=== PATIENT | male | born 1980 | race Caucasian/White ===

== ENCOUNTER 2020-12-08 01:25 | Emergency (ER) | payer SELFPAY ==
[~2020-12-08] VITALS: Ht 177.8 cm; Wt 74.8 kg
[2020-12-08 02:22] VITALS: BP 118/68
== END 2020-12-08 04:30 | disposition home or self-care (01) ==
LOC: ER 01:28
DX: S61.210A Laceration without foreign body of right index finger without damage to nail, initial encounter (principal); W26.0XXA Contact with knife, initial encounter; Y93.89 Activity, other specified; Y92.89 Other specified places as the place of occurrence of the external cause; Y99.8 Other external cause status

== ENCOUNTER 2023-02-07 07:59 | Inpatient (IN) | payer MEDICAID ==
[~2023-02-07] VITALS: Ht 177.8 cm; Wt 73.9 kg
--- NOTE | 2023-02-07 08:03 | NUR ---
BIB , PT STATING THAT HE STARTED TO SHAKE UNCONTROLLABLY AND THOUGHT HE WAS HAVING A SEIZURE. PT ATTACHED TO MONITOR, HEART RATE IS ELEVATED. PT DENIES TAKING ANY DRUG OR DRINKING RECENTLY. DR SULLIVAN AT BEDSIDE. AWAITING MD ORDERS.
--- NOTE | 2023-02-07 08:08 | NUR ---
IV ESTABLISHED R 20G. LABS COLLECTED AND SENT.
[2023-02-07] MEDS ORDERED: LORAZEPAM INJ 2 MG/ML VIAL ONE (08:11)
--- NOTE | 2023-02-07 08:15 | NUR ---
URINE COLLECTED AND SENT
[2023-02-07] MEDS ORDERED: IV NS 0.9% 1,000 ML BAG IV ONE (08:30)
[2023-02-07] MEDS ORDERED: LORAZEPAM INJ 2 MG/ML VIAL IV ONE ×2 (08:30→15:00)
[2023-02-07 08:48] LABS: ALCOHOL, BLOOD < 3 mg/dL (0-0)
[2023-02-07 08:50] LABS: BASOPHILS # (AUTO) 0.1 K/uL (0.0-0.2); BASOPHILS % (AUTO) 0.5 % (0.0-2.0); EOSINOPHILS % (AUTO) 0.3 % (0.0-6.0); HEMATOCRIT 48 % (39-51); HEMOGLOBIN 15.7 g/dL (13.5-17.5); LYMPHOCYTES # (AUTO) 2.2 K/uL (0.8-4.8); LYMPHOCYTES % (AUTO) 17.9 % (20.0-44.0); MEAN CORPUSCULAR HGB CONC 33 g/dl (31.0-36.0); MEAN CORPUSCULAR VOLUME 102 fL (80-96); MONOCYTES # (AUTO) 1.3 K/uL (0.1-1.30); MONOCYTES % (AUTO) 10.8 % (2.0-12.0); NEUTROPHILS # (AUTO) 8.5 K/uL (1.8-8.9); NEUTROPHILS % (AUTO) 70.5 % (43.0-81.0); PLATELET COUNT (AUTO) 187 K/uL (150-450); RED BLOOD CELL COUNT(AUTO) 4.65 MIL/uL (4.5-6.0); WHITE BLOOD COUNT (AUTO) 12.1 K/uL (4.3-11.0)
[2023-02-07 08:56] LABS: ALANINE AMINOTRANSFERASE 179 U/L (12-78); ALBUMIN 4.9 g/dL (3.4-5.0); ALKALINE PHOSPHATASE 191 U/L (46-116); ASPARTATE AMINOTRANSFERASE 304 U/L (15-37); BILIRUBIN,DIRECT 0.9 mg/dL (0.0-0.2); BILIRUBIN,TOTAL 2.3 mg/dL (0.2-1.0); CALCIUM, SERUM 9.4 mg/dL (8.5-10.1); CARBON DIOXIDE 19 mmol/L (21-32); CHLORIDE 93 mmol/L (98-107); CREATININE 1.1 mg/dL (0.6-1.3); GLUCOSE 186 mg/dL (74-106); POTASSIUM 3.4 mmol/L (3.5-5.1); SODIUM SERUM 133 mmol/L (136-145); TOTAL PROTEIN, SERUM 8.9 g/dL (6.4-8.2); UREA NITROGEN, BLOOD 8 mg/dL (7-18)
[2023-02-07 09:00] LABS: THYROID STIMULATING HORMONE 4.921 uIU/mL (0.358-3.74)
--- NOTE | 2023-02-07 13:00 | NUR ---
room 118-1
--- NOTE | 2023-02-07 13:08 | NUR ---
REPORT GIVEN TO ANGELINA FOR MASOOD
--- NOTE | 2023-02-07 14:22 | NUR ---
PT TRASNFERRED TO TELE FOLLOW WITH ACLS PROTOCOLS IN PLACE
--- NOTE | 2023-02-07 14:45 | NUR ---
ADMITTED PT FROM ER, PATIENT CAME FROM HOME, AWAKE, ALERT, ORIENTED X 4. ADM. DIAGNOSIS ALCOHOL WITHDRAWAL, PT REPORTED SEIZURE LIKE ACTIVITY AT HOME. HX OF ANXIETY, SINUS TACHYCARDIA ON MONITOR. IV ACCESS RIGHT AC 20G, SKIN INTACT, BPR, AMBULATORY. WILL CONTINUE TO MONITOR
[2023-02-07] MEDS ORDERED: Z GUARD REMEDY 4 OZ OINT TP PRN (15:00)
[2023-02-07] MEDS ORDERED: ZOLPIDEM TARTRATE 5 MG TABLET PO PRN (15:00)
[2023-02-07] MEDS ORDERED: MAG HYDROX/AL HYDROX/SIMETH 30 ML UDC PO PRN (15:00)
[2023-02-07] MEDS ORDERED: ONDANSETRON HCL/PF 4 MG/2 ML VIAL IVP PRN (15:00)
[2023-02-07] MEDS ORDERED: LORAZEPAM INJ 2 MG/ML VIAL IV PRN (15:00)
[2023-02-07] MEDS ORDERED: MAGNESIUM HYDROXIDE 30 ML UDC PO PRN (15:00)
[2023-02-07] MEDS: CHLORDIAZEPOXIDE HCL 25 MG CAPSULE PO SCH ×2 (15:11→17:27)
[2023-02-07 16:00] VITALS: BP 140/85
--- NOTE | 2023-02-07 19:35 | NUR ---
SALESPERSON SEWING MACHINES OPENING NOTES RECEIVED PATIENT SITTING ON THE CHAIR. WITH GIRLFRIEND ON BEDSIDE. PATIENT A/O X4. ABLE TO MAKE NEEDS KNOWN. PATIENT IS AMBULATORY. PATIENT ON ROOM AIR TOLERATING WELL. NO SOB, NOT IN DISTRESS NOTED. NO COMPLAINT OF PAIN AT THE MOMENT. WITH RIGHT AC G#20 SALINE LOCK. IV ACCESS NOTED TO BE FLUSHING WELL AND INTACT. SAFETY MEASURE IN PLACED; BED LOCKED AND IN LOWEST POSITION, SIDE RAILS UP X2, CALL LIGHT AND BEDSIDE TABLE WITHIN PATIENT REACH.
[2023-02-07 20:00] VITALS: BP 142/95
[2023-02-08] VITALS: BP 139/99
[2023-02-08 04:00] VITALS: BP 141/89
--- NOTE | 2023-02-08 06:39 | NUR ---
FIELD RADIO OPERATOR CLOSING NOTES PATIENT SLEEPING IN BED EASILY AWAKEN WITH STIMULI. PATIENT A/O X4. ABLE TO MAKE NEEDS KNOWN. PATIENT IS AMBULATORY. PATIENT ON ROOM AIR TOLERATING WELL. NO SOB, NOT IN DISTRESS NOTED. NO COMPLAINT OF PAIN AT THE MOMENT. ALL NEEDS ARE MET. NO PRN MEDICATIONS ASKED. WITH RIGHT AC G#20 SALINE LOCK. IV ACCESS NOTED TO BE FLUSHING WELL AND INTACT. SAFETY MEASURE IN PLACED; BED LOCKED AND IN LOWEST POSITION, SIDE RAILS UP X2, CALL LIGHT AND BEDSIDE TABLE WITHIN PATIENT REACH. WILL ENDORSE TO NEXT SHIFT NURSE FOR CONTINUITY OF CARE.
--- NOTE | 2023-02-08 07:50 | NUR ---
LICENSED LOAN OFFICER ASSISTANT OPENING NOTES RECEIVED PATIENT IN BED AWAKE AND ABLE OT MAKE NEEDS KNOWN , NOTED WITH SHAKING EPISODES .. PATIENT A/O X4. . PATIENT IS AMBULATORY. PATIENT ON ROOM AIR TOLERATING WELL. NO SOB, NOT IN DISTRESS NOTED. NO COMPLAINT OF PAIN AT THE MOMENT. WITH RIGHT FOREARM #20 SALINE LOCK. . SAFETY MEASURE IN PLACED; BED LOCKED AND IN LOWEST POSITION, SIDE RAILS UP X2, CALL LIGHT AND BEDSIDE TABLE WITHIN PATIENT REACH. WILL CONTINUE TO MONITOR .
[2023-02-08 08:00] VITALS: BP 137/93
[2023-02-08 08:09] LABS: BASOPHILS % (AUTO) 0.3 % (0.0-2.0); EOSINOPHILS % (AUTO) 0.5 % (0.0-6.0); HEMATOCRIT 45 % (39-51); LYMPHOCYTES # (AUTO) 0.5 K/uL (0.8-4.8); LYMPHOCYTES % (AUTO) 7.2 % (20.0-44.0); MEAN CORPUSCULAR HGB CONC 33 g/dl (31.0-36.0); MEAN CORPUSCULAR VOLUME 101 fL (80-96); MONOCYTES # (AUTO) 0.6 K/uL (0.1-1.30); MONOCYTES % (AUTO) 8.8 % (2.0-12.0); NEUTROPHILS # (AUTO) 5.4 K/uL (1.8-8.9); NEUTROPHILS % (AUTO) 83.2 % (43.0-81.0); PLATELET COUNT (AUTO) 104 K/uL (150-450); RED BLOOD CELL COUNT(AUTO) 4.46 MIL/uL (4.5-6.0); WHITE BLOOD COUNT (AUTO) 6.5 K/uL (4.3-11.0)
[2023-02-08] MEDS: CHLORDIAZEPOXIDE HCL 25 MG CAPSULE PO SCH ×3 (08:22→16:29)
[2023-02-08] MEDS: PANTOPRAZOLE 40 MG TABLET.DR PO SCH (08:22)
[2023-02-08 09:14] LABS: BILIRUBIN,DIRECT 1.1 mg/dL (0.0-0.2); BILIRUBIN,TOTAL 2.7 mg/dL (0.2-1.0); TOTAL PROTEIN, SERUM 7.9 g/dL (6.4-8.2)
[2023-02-08 09:15] LABS: POTASSIUM 3.7 mmol/L (3.5-5.1)
[2023-02-08 09:16] LABS: CALCIUM, SERUM 9.6 mg/dL (8.5-10.1); CREATININE 0.8 mg/dL (0.6-1.3); MAGNESIUM 1.1 mg/dL (1.8-2.4); PHOSPHORUS 2.9 mg/dL (2.5-4.9)
[2023-02-08] MEDS: Magnesium 1GM/D5W 100ML PREMIX 100 ML IV SCH ×4 (10:50→13:35)
[2023-02-08] MEDS: ACETAMINOPHEN 325 MG TABLET PO PRN ×2 (10:51→21:26)
[2023-02-08 12:00] VITALS: BP 137/93
[2023-02-08 16:00] VITALS: BP 136/86
--- NOTE | 2023-02-08 18:48 | NUR ---
ENGINE EMISSION TECHNICIAN CLOSING NOTES PATIENT IN BED AWAKE AND ABLE OT MAKE NEEDS KNOWN , NOTED WITH RESTLESSNESS AND SHAKING EPISODES .. PATIENT A/O X4. . PATIENT IS AMBULATORY. PATIENT ON ROOM AIR TOLERATING WELL. NO SOB, NOT IN DISTRESS NOTED. NO COMPLAINT OF PAIN AT THE MOMENT. WITH RIGHT FOREARM #20 SALINE LOCK. . NOTED WITH LOW MG LEVEL AND MD WITH ORDER OF MAGNESIUM IV 1 MG X 4 BAGS , XRAY ON THE LEFT SHOULDER DONE AND WITH NEGATIVE RESULT , SAFETY MEASURE IN PLACED; BED LOCKED AND IN LOWEST POSITION, SIDE RAILS UP X2, CALL LIGHT AND BEDSIDE TABLE WITHIN PATIENT REACH. WILL CONTINUE TO MONITOR .
--- NOTE | 2023-02-08 19:40 | NUR ---
RN NOTE RECEIVED PT IN BED, ALERT, AWAKE AND ORIENTED X4. PT VERBALLY RESPONSIVE. GENERALIZED BODY SHAKING/TREMORS NOTED. PT ON ROOM AIR, WELL TOLERATED, NO ACUTE RESP DISTRESS NOTED. AFEBRILE. EXTERNAL FURNACE STOCK INSPECTOR READING NSR. PT DENIES PAIN OR DISCOMFORT AT THIS TIME. PIV ACCESS ON R HAND #18G ON SALINE LOCK, PATENT AND FLUSHES WELL. PT AMBULATORY WITH ASSIST. CALL LIGHT WITHIN REACH. SAFETY PRECAUTION IMPLEMENTED, BED LOCKED AND IN LOWEST POSITION. FAMILY AT BEDSIDE. WILL CONTINUE POC.
[2023-02-08 20:00] VITALS: BP 135/75
[2023-02-09] VITALS: BP 126/76
[2023-02-09] MEDS: ACETAMINOPHEN 325 MG TABLET PO PRN ×2 (03:30→13:26)
[2023-02-09 04:00] VITALS: BP 114/71
--- NOTE | 2023-02-09 06:56 | NUR ---
RN NOTE PT REMAINS IN STABLE CONDITION, NO SIGNIFICANT CHANGES NOTED. PT COOPERATIVE AND FOLLOW INSTRUCTIONS. GENERALIZED BODY TREMORS STILL NOTED. REMAINS ON ROOM AIR, NO SOB, NO ACUTE RESP DISTRESS NOTED. PIV ON R HAND ON SL, PATENT. ALL NEEDS ATTENDED. ALL DUE MEDICATIONS GIVEN ORDERED. PT AMBULATORY WITH ASSIST. CALL LIGHT WITHIN EASY REACH AT ALL TIMES. SAFETY PRECAUTION IMPLEMENTED. BED LOCKED AND IN LOWEST POSITION. BED ALARM ON. WILL ENDORSE TO AM SHIFT FOR MASOOD.
[2023-02-09 07:10] LABS: BASOPHILS % (AUTO) 0.3 % (0.0-2.0); EOSINOPHILS % (AUTO) 1.4 % (0.0-6.0); HEMATOCRIT 44 % (39-51); HEMOGLOBIN 14.5 g/dL (13.5-17.5); LYMPHOCYTES # (AUTO) 0.7 K/uL (0.8-4.8); LYMPHOCYTES % (AUTO) 10.9 % (20.0-44.0); MEAN CORPUSCULAR HGB CONC 33 g/dl (31.0-36.0); MEAN CORPUSCULAR VOLUME 103 fL (80-96); MONOCYTES # (AUTO) 0.6 K/uL (0.1-1.30); MONOCYTES % (AUTO) 10.2 % (2.0-12.0); NEUTROPHILS # (AUTO) 4.7 K/uL (1.8-8.9); NEUTROPHILS % (AUTO) 77.2 % (43.0-81.0); PLATELET COUNT (AUTO) 121 K/uL (150-450)
--- NOTE | 2023-02-09 07:10 | NUR ---
RN OPENING NOTE RECEIVED PATIENT IN BED AWAKE, A/O X 4, ABLE OT MAKE NEEDS KNOWN, NOTED WITH SHAKING EPISODES. PATIENT IS AMBULATORY, BPR. SATURATION 97% ON ROOM AIR, NO SOB. IV ACCESS RIGHT FOREARM #20, SALINE LOCKED. SAFETY MEASURE IN PLACED, BED LOCKED AND IN LOWEST POSITION, CALL LIGHT AND BEDSIDE TABLE WITHIN PATIENT REACH. WILL CONTINUE TO MONITOR .
[2023-02-09] MEDS: PANTOPRAZOLE 40 MG TABLET.DR PO SCH (07:24)
[2023-02-09 07:51] LABS: CALCIUM, SERUM 9.5 mg/dL (8.5-10.1); CREATININE 0.6 mg/dL (0.6-1.3); MAGNESIUM 2.1 mg/dL (1.8-2.4); PHOSPHORUS 4.6 mg/dL (2.5-4.9); POTASSIUM 4.3 mmol/L (3.5-5.1)
[2023-02-09 08:00] VITALS: BP 140/96
[2023-02-09 08:15] LABS: ALBUMIN 3.5 g/dL (3.4-5.0); BILIRUBIN,TOTAL 2.4 mg/dL (0.2-1.0); TOTAL PROTEIN, SERUM 7.9 g/dL (6.4-8.2)
[2023-02-09 08:35] LABS: BILIRUBIN,DIRECT 0.6 mg/dL (0.0-0.2)
[2023-02-09] MEDS: CHLORDIAZEPOXIDE HCL 25 MG CAPSULE PO SCH ×3 (09:16→17:21)
[2023-02-09 12:00] VITALS: BP 140/96
[2023-02-09] MEDS ORDERED: Thiamine 100 MG in IV D5W 50 ML IV SCH (14:00)
[2023-02-09] MEDS ORDERED: Folic acid 1 MG in IV D5W 50 ML IV SCH (14:00)
[2023-02-09 16:00] VITALS: BP 135/88
[2023-02-09 17:18] LABS: LYMPHOCYTES % (MANUAL) 11 % (16-48); MONOCYTES % (MANUAL) 9 % (0-11.0); NEUTROPHILS % (MANUAL) 80 (42-76)
--- NOTE | 2023-02-09 19:10 | NUR ---
RN NOTES: RECEIVED LYING ON BED, HIS GF PRESENT AT BED SIDE, A/OX4M ON ROOM AIR, NO SOB , AMBULATORY, SKIN IS INTACT, IV CANNULA ON RH G#22, NO IVF, ORIENTED TO UNIT AND STAFF, ON TELE MONITOR SINUS RHYTHM-80'S, ORIENTED TO UNIT AND STAFF, NO PAIN OR DISCOMFORT, NO SOB, NO TREMORS NOTED.
--- NOTE | 2023-02-09 19:16 | NUR ---
RN CLOSING NOTE PATIENT IN BED AWAKE, A/O X 4, ABLE OT MAKE NEEDS KNOWN. PATIENT IS AMBULATORY, BPR. SATURATION 97% ON ROOM AIR, NO SOB. IV ACCESS RIGHT FOREARM #20, SALINE LOCKED. ALL MEDS GIVEN ON TIME, ALL NEEDS MET, SAFETY MEASURE IN PLACED, BED LOCKED AND IN LOWEST POSITION, CALL LIGHT AND BEDSIDE TABLE WITHIN PATIENT REACH. WILL ENDORSE TO THE NEXT SHIFT FOR MASOOD.
[2023-02-09 20:00] VITALS: BP 126/84
--- NOTE | 2023-02-09 23:39 | NUR ---
RN NOTES: AWAKE, ASSISTED TO THE BATHROOM, ABLE TO AMBULATE, UNSTEADY GAIT, HE HAD TREMORS ON THE HAND,COOPERATIVE TO CARE, BED LINNEN ALL CHANGE, DRESS CHANGE, HE IS PERSPIRING, GIVEN SNACKS, GIVEN 2 JUICE.
[2023-02-10] VITALS: BP 129/87
[2023-02-10 04:00] VITALS: BP 132/90
--- NOTE | 2023-02-10 05:15 | NUR ---
RN NOTES: ASLEEP AT SHORT INTERVALS, AWAKE IN BETWEEN, HE WAS PERSPIRING A LOT, CHANGE GOWN AND BLANKET, HAND TREMORS VERY PROMINENT, GIVEN 2 ORANGE JUICE WITH ICE, HE EAT HIS REMAINING SANDWICH, COOPERATIVE TO CARE.THEN HE GO BACK TO SLEEP AGAIN
--- NOTE | 2023-02-10 06:35 | NUR ---
RN NOTES: GO BACK TO SLEEP, NEEDS ATTENDED, HE EAT SNACK, ON TELE MONITOR SINUS RHYTHM-75, NO COMPLAINTS OF ANY PAIN OR DISCOMFORT,HE WAS COOPERATIVE TO CARE, NO SIGN OF AGITATION THE ENTIRE SHIFT, NO PRN GIVEN, CONTINUE TO ENCOURAGE TO DRINK WATER FOR REPLACEMENT OF FLUIDS BECAUSE HE PERSPIRE A LOT., CHANGE NEEDED, KEPT DRY AND COMFORTABLE, FOR LABS THIS MORNING, ENDORSED FOR CONTINUITY OF CARE.
[2023-02-10 06:57] LABS: BASOPHILS % (AUTO) 0.6 % (0.0-2.0); EOSINOPHILS % (AUTO) 1.8 % (0.0-6.0); HEMATOCRIT 45 % (39-51); HEMOGLOBIN 14.6 g/dL (13.5-17.5); LYMPHOCYTES # (AUTO) 0.5 K/uL (0.8-4.8); LYMPHOCYTES % (AUTO) 9.5 % (20.0-44.0); MEAN CORPUSCULAR HGB CONC 33 g/dl (31.0-36.0); MEAN CORPUSCULAR VOLUME 104 fL (80-96); MONOCYTES # (AUTO) 0.7 K/uL (0.1-1.30); MONOCYTES % (AUTO) 11.8 % (2.0-12.0); NEUTROPHILS # (AUTO) 4.3 K/uL (1.8-8.9); NEUTROPHILS % (AUTO) 76.3 % (43.0-81.0); PLATELET COUNT (AUTO) 138 K/uL (150-450); RED BLOOD CELL COUNT(AUTO) 4.27 MIL/uL (4.5-6.0); WHITE BLOOD COUNT (AUTO) 5.7 K/uL (4.3-11.0)
--- NOTE | 2023-02-10 07:11 | NUR ---
RN OPENING NOTE RECEIVED PATIENT IN BED ASLEEP. SATURATION 97% ON ROOM AIR, NO SOB. IV ACCESS RIGHT FOREARM #20, SALINE LOCKED. SAFETY MEASURE IN PLACED, BED LOCKED AND IN LOWEST POSITION, CALL LIGHT AND BEDSIDE TABLE WITHIN PATIENT REACH. WILL CONTINUE TO MONITOR
[2023-02-10 07:16] LABS: ALBUMIN 3.6 g/dL (3.4-5.0); BILIRUBIN,DIRECT 0.6 mg/dL (0.0-0.2); BILIRUBIN,TOTAL 1.1 mg/dL (0.2-1.0); TOTAL PROTEIN, SERUM 7.9 g/dL (6.4-8.2)
[2023-02-10] MEDS: PANTOPRAZOLE 40 MG TABLET.DR PO SCH (07:22)
[2023-02-10 07:25] LABS: CALCIUM, SERUM 9.7 mg/dL (8.5-10.1); CREATININE 0.7 mg/dL (0.6-1.3); PHOSPHORUS 5.2 mg/dL (2.5-4.9); POTASSIUM 3.6 mmol/L (3.5-5.1)
[2023-02-10 08:00] VITALS: BP 125/70
[2023-02-10] MEDS: MULTIVITAMINS,THERAGRAN 1 UDTAB TABLET PO SCH (08:54)
[2023-02-10] MEDS: CHLORDIAZEPOXIDE HCL 25 MG CAPSULE PO SCH ×3 (08:54→16:55)
[2023-02-10 12:00] VITALS: BP 125/70
[2023-02-10] MEDS: THIAMINE HCL 100 MG TABLET PO SCH (13:40)
[2023-02-10] MEDS: FOLIC ACID 1 MG TABLET PO SCH (13:40)
--- NOTE | 2023-02-10 18:48 | NUR ---
RN CLOSING NOTE PATIENT IN BED AWAKE, A/O X 4, ABLE OT MAKE NEEDS KNOWN. PATIENT IS AMBULATORY, BPR. SATURATION 97% ON ROOM AIR, NO SOB. IV ACCESS RIGHT FOREARM #20, SALINE LOCKED. ALL MEDS GIVEN ON TIME, ALL NEEDS MET, SAFETY MEASURE IMPLEMENTED, BED LOCKED AND IN LOWEST POSITION, CALL LIGHT AND BEDSIDE TABLE WITHIN PATIENT REACH. WILL ENDORSE TO THE NEXT SHIFT FOR MASOOD.
--- NOTE | 2023-02-10 19:45 | NUR ---
MS RN NOTES RECEIVED STANDING BY THE BEDSIDE,A/O X4,ABLE TO MAKE NEEDS KNOWN.NO COMPLAINTS AT THE MOMENTSALINE LOCK RIGHT HAND INTACT AND PATENT.CALL LIGHT IN REACH,NEEDS ANTICIPATED.
[2023-02-10 20:00] VITALS: BP 129/68
[2023-02-11 04:00] VITALS: BP 109/7
--- NOTE | 2023-02-11 06:48 | NUR ---
MS RN NOTES ON BED SLEEPING,BREATHING REGULAR,NOT IN ANY FORM OF DISTRESS.NO ETOH WITHDRAWAL NOTED,NO DISTRESS.
[2023-02-11 07:05] LABS: BASOPHILS % (AUTO) 0.6 % (0.0-2.0); EOSINOPHILS % (AUTO) 1.8 % (0.0-6.0); HEMATOCRIT 42 % (39-51); HEMOGLOBIN 13.9 g/dL (13.5-17.5); LYMPHOCYTES # (AUTO) 0.7 K/uL (0.8-4.8); LYMPHOCYTES % (AUTO) 12.7 % (20.0-44.0); MEAN CORPUSCULAR HGB CONC 33 g/dl (31.0-36.0); MEAN CORPUSCULAR VOLUME 104 fL (80-96); MONOCYTES # (AUTO) 0.6 K/uL (0.1-1.30); MONOCYTES % (AUTO) 10.5 % (2.0-12.0); NEUTROPHILS # (AUTO) 4.2 K/uL (1.8-8.9); NEUTROPHILS % (AUTO) 74.4 % (43.0-81.0); PLATELET COUNT (AUTO) 173 K/uL (150-450); RED BLOOD CELL COUNT(AUTO) 4.07 MIL/uL (4.5-6.0); WHITE BLOOD COUNT (AUTO) 5.6 K/uL (4.3-11.0)
[2023-02-11 07:49] LABS: CALCIUM, SERUM 9.6 mg/dL (8.5-10.1); CREATININE 0.7 mg/dL (0.6-1.3); PHOSPHORUS 5.1 mg/dL (2.5-4.9); POTASSIUM 4.2 mmol/L (3.5-5.1)
--- NOTE | 2023-02-11 08:05 | NUR ---
RN OPENING NOTE RECEIVED PATIENT AWAKE IN BED A/OX4, SATURATION 98% ON ROOM AIR, NO SOB. IV ACCESS RIGHT HAND #22, SALINE LOCKED. SAFETY MEASURE IN PLACED, BED LOCKED AND IN LOWEST POSITION, CALL LIGHT AND BEDSIDE TABLE WITHIN PATIENT REACH. WILL CONTINUE TO MONITOR
[2023-02-11] MEDS: CHLORDIAZEPOXIDE HCL 25 MG CAPSULE PO SCH ×3 (08:25→17:41)
[2023-02-11] MEDS: PANTOPRAZOLE 40 MG TABLET.DR PO SCH (08:25)
[2023-02-11] MEDS: FOLIC ACID 1 MG TABLET PO SCH (08:25)
[2023-02-11] MEDS: MULTIVITAMINS,THERAGRAN 1 UDTAB TABLET PO SCH (08:25)
[2023-02-11 08:30] LABS: MAGNESIUM 1.9 mg/dL (1.8-2.4)
[2023-02-11] MEDS: THIAMINE HCL 100 MG TABLET PO SCH (13:43)
[2023-02-11 16:57] VITALS: BP 127/81
[2023-02-11] MEDS ORDERED: THIA100T88 PO (17:23)
[2023-02-11] MEDS ORDERED: MULT-754 PO (17:23)
[2023-02-11] MEDS ORDERED: FOLI0.8C PO (17:23)
--- NOTE | 2023-02-11 18:24 | NUR ---
DISCHARGED NOTE PATIENT DISCHARGED TO HOME IN STABLE CONDITION. A/OX4. ON ROOM AIR, NO SOB NOTED. IV ACCESS REMOVED, NO BLEEDING OR HEMATOMA NOTED. DISCHARGED INSTRUCTIONS RELAYED TO PATIENT. NO TREMORS NOTED ALL THROUGHOUT THE SHIFT. PATIENT DID NOT C/O PAIN/DISCOMFORT OR SHAKINESS. DUE MEDS GIVEN. PER PATIENT HE WILL BE HEEL TOP LIFT SPLITTER BY HIS FIANCEE. LEFT THE UNIT VIA WHEELCHAIR ACCOMPANIED BY MAKAYLA ALLEN. DISCHARGED.
== END 2023-02-11 18:20 | disposition home or self-care (01) | DRG 426 ==
LOC: ER 08:00 → TELE1 13:38 → MEDSG1 02-10 11:29
PROVIDERS: ADMIT Student in an Organized Health Care Education/Training Program; ATTEND Student in an Organized Health Care Education/Training Program
DX: E87.1 Hypo-osmolality and hyponatremia (principal); F06.1 Catatonic disorder due to known physiological condition; D72.829 Elevated white blood cell count, unspecified; R74.01 Elevation of levels of liver transaminase levels; F10.139 Alcohol abuse with withdrawal, unspecified; Y90.0 Blood alcohol level of less than 20 mg/100 ml; E87.6 Hypokalemia; Z20.822 Contact with and (suspected) exposure to COVID-19; F41.0 Panic disorder [episodic paroxysmal anxiety]; F41.9 Anxiety disorder, unspecified; R73.9 Hyperglycemia, unspecified; M25.512 Pain in left shoulder; Z74.09 Other reduced mobility
CPT/HCPCS: 36415; 70450-TC; 71045-TC; 73030-TC; 76700-TC; 80048-TC; 80076-TC; 82140-TC; 82962-TC; 83735-TC; 84100-TC; 84439-TC; 84443-TC; 84484-TC; 85025-TC; 85730-TC; 86850-TC; 97116-TC; 97530-TC; A4223; C9803; G0378; G0480; J2060; J3411; J3475; J3490; J7030; J7050; J7060